=== PATIENT | male | born 1995 | race Caucasian/White ===

== ENCOUNTER 2017-10-31 21:36 | Emergency (ER) | payer OTHER, SELFPAY ==
[2017-10-31 21:37] VITALS: BP 147/93; PULSE 75; RESP 18; TEMP 37.4; O2SAT 100; BMI 22.5
[2017-10-31] MEDS: Cephalexin 250 MG Capsule 500 MG PO (23:01)
[2017-10-31] MEDS: HYDROcodone Bitartrate/Apap 5/325 Tablet PO (23:01)
--- NOTE | 2017-10-31 23:30 | ED.VISSUMM ---
- ER Visit Summary Date of Service: 10/31/17 Chief Complaint: Left long finger injury History of Present Illness: The patient is a 22 M who is right-hand dominant. Tonight he crushed his left long finger between 2 racks at work. He does have a laceration to the distal phalanx of the left third finger. He believes his last tetanus shot was approximately 7 years ago. Physical Examination: Vital signs unremarkable. Patient sitting upright in bed. He is in no acute distress. Left upper extremity examination reveals a small subungual hematoma to the left third finger. He has a 1 cm laceration of the distal phalanx on the palmar side. He has full range of motion. He has diffuse tenderness to palpation throughout the finger. He has good cap refill and sensation. Test Results: Left hand x-rays reveal a third distal tuft fracture. Emergency Department Course and Treatment: Patient is given Mckin[place], Keflex, and tetanus update. 1% lidocaine is used as a digital block. Wound is irrigated and skin is closed with 3 simple interrupted sutures of 5-0 nylon. Dressing will be applied and patient was placed in an AlumaFoam splint. He will follow-up with [facility]. Treatment Plan: [] Disposition: Discharge Impression: Open tuft fracture left third finger status post suture This note was generated with [employer] dictation software. It may contain incorrect words, spelling, and punctuation that were not noted in review of the chart prior to signing ED Disposition - Plan for ED Patient: Chief Complaint: Upper Extremity Injury Referrals: Rivera Valentin Jr., MD [Primary Care Provider] -
--- NOTE | 2017-10-31 23:32 | ED.DEP ---
ED Disposition - Plan for ED Patient: Disposition: Home or Assisted Living Chief Complaint: Upper Extremity Injury Instructions: ED Fx Finger Open Prescriptions: Cephalexin [Keflex] 500 mg PO Q6 #40 capsule Hydrocodone/Acetaminophen [[place] 5-325 Tablet] 1 - 2 each PO 4X/DAY PRN PRN 5 Days #20 tablet PRN Reason: Pain Referrals: [facility] [[facility] OF PHYSICIANS] - 2 Days Additional Instructions: Have sutures removed in one week.
== END 2017-10-31 23:47 | disposition home or self-care (01) ==
PROVIDERS: Emergency Provider Emergency Medicine; Family Provider Internal Medicine; PCP Internal Medicine
DX: S62.633B Displaced fracture of distal phalanx of left middle finger, initial encounter for open fracture (principal); S61.213A Laceration without foreign body of left middle finger without damage to nail, initial encounter; W23.0XXA Caught, crushed, jammed, or pinched between moving objects, initial encounter; Y93.9 Activity, unspecified; Y92.9 Unspecified place or not applicable
CPT/HCPCS: 12001; 73130; 99285

== ENCOUNTER 2020-06-19 19:21 | Emergency (ER) | payer MEDICAID, SELFPAY ==
[2020-06-19 19:21] VITALS: BP 149/70; PULSE 97; RESP 18; TEMP 36.2; O2SAT 98; BMI 23.4
--- NOTE | 2020-06-19 19:40 | RAD_ITS ---
STUDY: X-RAY - LEFT FOOT CLINICAL: Male, 25 years old. Injury/Pain TECHNIQUE: 3 view(s) of the foot. COMPARISON: 11/19/2015. FINDINGS: Compression plate and screws seen along the lateral surface of the anterior process of the calcaneus. No visible fracture lines are seen. No other changes or acute abnormalities. Normal visualized subtalar, talonavicular, calcaneocuboid, tarsal and tarsometatarsal articulations. Normal metatarsi. Normal metatarsophalangeal joint of the great toe. Normal tibial and fibular sesamoid bones. Normal interphalangeal joint of the great toe. Normal phalanges of the great toe. Normal second through fifth metatarsophalangeal joints. Normal interphalangeal joints and phalanges of the lesser toes. The soft tissue structures are unremarkable. There is no demonstrated fracture. RAD/Foot min 3 Views IMPRESSION: No acute abnormality, status post surgical repair of previous calcaneal fractures. Electronically Signed: Maverick Huertas MD at 20:20 EDT , Service support ,
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
== END 2020-06-19 20:41 | disposition home or self-care (01) ==
PROVIDERS: Emergency Provider Emergency Medicine
DX: M79.672 Pain in left foot (principal); F17.200 Nicotine dependence, unspecified, uncomplicated
CPT/HCPCS: 73630; 99282

== ENCOUNTER 2020-10-15 09:17 | Emergency (ER) | payer MEDICAID, SELFPAY ==
[2020-10-15 09:18] VITALS: BP 139/92; PULSE 64; RESP 15; TEMP 36.3; O2SAT 99; BMI 22.0
--- NOTE | 2020-10-15 09:54 | EKG12_ITS ---
Test Reason : CP Blood Pressure : / mmHG Vent. Rate : 055 BPM Atrial Rate : 055 BPM P-R Int : 162 ms QRS Dur : 132 ms QT Int : 424 ms P-R-T Axes : -84 012 024 degrees QTc Int : 405 ms Possible ectopic atrial bradycardia Non-specific intra-ventricular conduction block Abnormal ECG Confirmed by LLUVIA MILLER, LEXY ([id number]), health editor MORAIMA RAMIREZ ([id number]) on 10/19/2020 12:59:34 PM Referred By: SCARLET Confirmed By:LEXY TEIXEIRA MD
--- NOTE | 2020-10-15 10:02 | EDS_ITS ---
HPI History of Present Illness Chief Complaint: Chest Pain Informant: patient Narrative Narrative: Patient is a 25-year-old previously healthy male who presents to the emergency department for chest pain. He states that it started earlier today. Currently rates as a 6 out of 10. It is a sharp discomfort. It has been coming and going over the past 5 years. He has followed up with physicians for this before. He is not sure of the diagnosis he was given for it. He denies any associated shortness of breath. He denies any cough, nausea/vomiting. No back or abdominal pain. No known aggravating or relieving factors. He used to take Tylenol for this but has not been helping the previous episodes. He denies any leg swelling or calf pain. Only prolonged period of immobility was for a flight to [place]. This was within the past couple of months. Patient does smoke cigarettes. [facility] Medical History (Updated 10/15/20 @ 11:[address] Rodriguez Joshua DO) Asthma Neck/Back Pain Home Medications NK 06/19/20 [History Last Taken Unknown] Allergy/AdvReac Type Severity Reaction Status Date / Time codeine Allergy Unknown Verified 10/15/20 09:20 Penicillins Allergy Unknown Verified 10/15/20 09:20 Social History Smoking Status: Current every day smoker tobacco type: cigarettes alcohol intake: never ROS ROS ED Constitutional Constitutional ED: Denies chills or fever(s) Eyes Eyes: Denies change in vision ENT ENT ED: Denies epistaxis or rhinorrhea Cardiovascular Cardiovascular: Reports chest pain; Denies palpitations Respiratory/Chest Respiratory/Chest: Denies cough, dyspnea or dyspnea on exertion Gastrointestinal Gastrointestinal: Denies abdominal pain, diarrhea, nausea or vomiting Genitourinary Genitourinary ED: Reports urinary frequency; Denies dysuria or hematuria Musculoskeletal Musculoskeletal: Denies back pain or neck pain Integumentary Denies rash Neurologic Neurologic: Denies dizziness, headache(s) or weakness EXAM Physical Exam Const Vital Signs: 10/15/20 09:18 10/15/20 09:28 10/15/20 10:26 Temperature 97.4 F L Temperature Source Temporal Pulse Rate 64 64 Respiratory Rate 15 14 Respiratory Effort Normal Non-Labored Blood Pressure 139/92 H 125/78 H Blood Pressure Mean 107 93 Pulse Ox 99 98 Oxygen Delivery Method Room Air Room Air 10/15/20 11:30 Temperature Temperature Source Pulse Rate 67 Respiratory Rate 16 Respiratory Effort Blood Pressure 139/74 H Blood Pressure Mean Pulse Ox 99 Oxygen Delivery Method Positive well nourished and well developed General Appearance ED: well developed and NAD HEENT Reports normocephalic, head/scalp atraumatic and moist mucous membranes Eyes PERRL and EOMs intact bilaterally Neck supple General: Negative for tenderness Chest Wall inspection of chest normal Resp normal respiratory effort and clear to auscultation bilaterally Auscultation: Negative for rales, rhonchi or wheezes Cardio regular rate, regular rhythm and no murmurs GI normal to inspection, nondistended, normoactive bowel sounds and non-tender Palpation: soft; Negative for guarding or rebound tenderness present Back/Spine no CVA tenderness Extremity General Extremety ED: Negative for edema or tenderness General Extremity: Negative for edema Neuro Sensorium / Orientation: alert Motor Exam: strength 5/5 throughout Psych mental status grossly normal Skin no rashes or lesions noted Heart Score History: Slightly/Non-Suspicious ECG: Normal Age: </= 45 years Risk Factors: 1 or 2 Risk Factors Score: 1 MDM MDM MDM Narrative Medical decision making narrative: Patient presents to the emergency department for acute on chronic exacerbation of left chest pain. It is not exertional. Is nonpleuritic. He satting 99% on room air. He is not tachycardic. He is PERC negative and I have low concern for thromboembolism. EKG, chest x-ray and basic lab work being obtained. Is given a dose of Toradol for symptomatic treatment. Patient's lab work did not reveal any significant acute abnormality. He is not anemic. Troponin well within normal limits. Chest x-ray does not reveal any acute cardiopulmonary abnormality. On reexamination patient is feeling improved. This time I believe concern for ACS as he has had these symptoms many times before in the past. We will have him follow-up with his PCP. Return precautions are reviewed with him. He understands and is agreeable this plan. All questions are answered. Lab Data Labs: Laboratory Results - last 24 hr 10/15/20 10/15/20 10:17 10:17 WBC 6.4 RBC 5.20 Hgb 15.5 Hct 45.5 MCV 87.5 MCH 29.8 MCHC 34.1 RDW Std Deviation 39.0 RDW Coeff of Zoya 12.1 Plt Count 170 MPV 11.2 Immature Gran % (Auto) 0.500 Neut % (Auto) 56.2 Lymph % (Auto) 29.4 [place] % (Auto) 7.5 Eos % (Auto) 5.6 H Baso % (Auto) 0.8 Absolute Neuts (auto) 3.6 Absolute Lymphs (auto) 1.88 Nucleated RBC % 0 Sodium 143 Potassium 3.4 L Chloride 109 H Carbon Dioxide 30.0 Anion Gap 4 L BUN 11 Creatinine 0.86 Estim Creat Clear Calc 122.15 Est GFR (MDRD) Af Amer 138 Est GFR (MDRD) Non-Af 114 BUN/Creatinine Ratio 12.8 Glucose 92 Calcium 8.5 Troponin I High Sens 13 Radiography Diagnostic Testing: Radiology Impression Chest X-Ray 10/15/20 10:12 IMPRESSION: Normal x-ray examination of the chest. Electronically Signed: Duarte Swift MD at 10:42 EDT , Service support , EKG Initial EKG: Attestation: I personally reviewed and interpreted this EKG as follows: (Rate of 55 bpm and normal sinus rhythm. Normal intervals. Mildly prolonged QRS of 132. No significant ST elevations or depressions. No T wave abnormalities.) Discharge Plan Triage Chief Complaint: Chest Pain ED Provider: Rodriguez Joshua Dx/Rx/DC Orders Clinical Impression: Chest pain Instructions: ED Chest Pain, Noncardiac Prescriptions: No Action NK RF: 0 Primary Care Provider: Care Physician,No Primary Referrals: Care Physician,No Primary [Primary Care Provider] - 3-5 Days Disposition Disposition: Home, Self Care Discharge Date/Time: 10/15/20 11:31
--- NOTE | 2020-10-15 10:12 | RAD_ITS ---
STUDY: X-RAY CHEST REASON FOR EXAM: Male, 25 years old. Chest pain TECHNIQUE: Single AP portable view of the chest. COMPARISON: Comparison is made with prior study dated 06/01/2015. FINDINGS: EKG electrodes are seen. The lungs are clear and expanded. There is no demonstrated pleural abnormality. Normal size heart. Normal mediastinum and renan. Normal visualized pulmonary arteries. Normal visualized aortic arch and descending thoracic aorta. Normal visualized thoracic spine. Normal visualized ribs, clavicles, and shoulders. There is no demonstrated abnormality of the visualized soft tissue structures of the upper abdomen. RAD/Chest 1 View (Portable) IMPRESSION: Normal x-ray examination of the chest. Electronically Signed: Duarte Swift MD at 10:42 EDT , Service support ,
[2020-10-15] MEDS: Ketorolac 15 MG/ML Vial IV (10:22)
[2020-10-15 10:26] VITALS: BP 125/78; PULSE 64; RESP 14; O2SAT 98
[2020-10-15 10:34] LABS: Absolute Lymphocyte Count 1.88 X10^3/uL (0.83-4.51); Absolute Neutrophil Count 3.6 X10^3/uL (2.0-7.7); Basophil# 0.05 X10^3/uL; Basophil% 0.8 % (0-1); Eosinophil# 0.36 X10^3/uL; Eosinophils% 5.6 % (0-5); Hematocrit 45.5 % (40-54); Hemoglobin 15.5 g/dL (13.0-16.5); Lymphocyte # 1.88 X10^3/ul (0.83-4.51); Lymphocyte % 29.4 % (19-41); Mean Corp Hgb Conc 34.1 g/dL (32-36); Mean Corpuscular Hgb 29.8 pg (27.0-32.0); Mean Corpuscular Volume 87.5 fL (80-94); Mean Platelet Vol. 11.2 fl (6.2-12.0); Monocyte# 0.48 X10^3/uL; Monocyte% 7.5 % (0-10); NRBC Flagged by Analyzer 0 % (0-5); Neutrophil # 3.59 X10^3/uL (2.7-7.7); Neutrophil % 56.2 % (47-70); Platelet Count 170 K/mm3 (150-450); RBC Distribution Width CV 12.1 % (11.6-14.6); White Blood Count 6.4 K/mm3 (4.4-11.0)
[2020-10-15 10:49] LABS: Anion Gap 4 (5-15); BUN 11 mg/dL (7-18); BUN/Creat Ratio 12.8 RATIO (10-20); Calcium,Total 8.5 mg/dL (8.5-10.1); Chloride 109 mmol/L (98-107); Creatinine, Serum 0.86 mg/dL (0.70-1.30); EST Glomerular Filtration Rate 114 mL/min (>60); Est Glom Filt Rate - Afr Amer 138 mL/min (>60); Estimated Creatinine Clearance 122.15 ml/min; Glucose 92 mg/dL (74-106); Potassium 3.4 mmol/L (3.5-5.1); Sodium Level 143 mmol/L (136-145); Troponin-I HS 13 pg/mL (3.0-78.0)
[2020-10-15 11:30] VITALS: BP 139/74; PULSE 67; RESP 16; O2SAT 99
== END 2020-10-15 11:31 | disposition home or self-care (01) ==
PROVIDERS: Emergency Provider Emergency Medicine
DX: R07.9 Chest pain, unspecified (principal); F17.210 Nicotine dependence, cigarettes, uncomplicated
CPT/HCPCS: 71045; 80048; 84484; 85025; 93005; 96374; 99283; A4216

== ENCOUNTER 2021-10-17 21:39 | Emergency (ER) | payer MEDICAID, SELFPAY ==
[2021-10-17 21:40] VITALS: BP 136/90; PULSE 96; RESP 18; TEMP 36.4; O2SAT 100; BMI 24.3
--- NOTE | 2021-10-17 21:54 | EX.ED.DYSGE1 ---
HPI History of Present Illness Chief Complaint: General Illness Detail of Chief Complaint: Cough and body aches and recent exposure to COVID-19 Informant: patient Narrative Narrative: Patient presents to the emergency department with complaint of cough and body aches that started around 11 AM today. Patient states that his girlfriend was just diagnosed with COVID-19. Patient did not take a home test. Patient denies any chest pain or shortness of breath. He denies fever. He has not had the COVID-vaccine. PFSH PFS Medical History (Updated 10/17/21 @ 22:[address] Kemar Bueno DO) Asthma Neck/Back Pain Home Medications NK 06/19/20 [History Last Taken Unknown] Allergy/AdvReac Type Severity Reaction Status Date / Time codeine Allergy Unknown Verified 10/15/20 09:20 Penicillins Allergy Unknown Verified 10/15/20 09:20 Social History Smoking Status: Current every day smoker tobacco type: cigarettes alcohol intake: never ROS ROS ED Review of Systems ROS Unobtainable: other Constitutional Constitutional ED: Reports lethargy; Denies chills, fever(s), sweats or weight loss Eyes Eyes: Denies blurry vision, change in vision or diplopia ENT ENT ED: Denies rhinorrhea or sore throat Cardiovascular Cardiovascular: Reports racing heartbeat; Denies chest pain, orthopnea or palpitations Respiratory/Chest Respiratory/Chest: Reports cough; Denies dyspnea, dyspnea on exertion, orthopnea or sputum Gastrointestinal Gastrointestinal: Denies abdominal pain, diarrhea, nausea or vomiting Genitourinary Genitourinary ED: Denies dysuria, hematuria or urinary frequency Musculoskeletal Musculoskeletal: Reports myalgias; Denies arthralgias, back pain or neck pain Integumentary Denies abscess, Abrasions or rash Neurologic Neurologic: Reports headache(s); Denies weakness Psychiatric Psychiatric: Denies anxiety, depression or suicidal thoughts Endocrine Endocrinology: Denies polydipsia, polyphagia or polyuria Hematologic/Lymphatic Hematologic/Lymphatic: Denies easy bleeding, easy bruising or lymphadenopathy Allergic/Immunologic Allergic/Immunologic ED: Denies mouth swelling, tongue swelling or urticaria EXAM Physical Exam Const Vital Signs: 10/17/21 21:40 Temperature 97.6 F L Temperature Source Temporal Pulse Rate 96 Respiratory Rate 18 Blood Pressure 136/90 H Blood Pressure Mean 105 Pulse Ox 100 Oxygen Delivery Method Room Air Positive well nourished and well developed General Appearance ED: well developed and NAD HEENT Reports TM's clear and moist mucous membranes normocephalic and atraumatic; Negative for trauma or tenderness Tympanic Membrane ED: Yes TM's clear Eyes PERRL and EOMs intact bilaterally General Eye ED: Negative for pale conjunctiva or scleral icterus Neck no lymphadenopathy, supple and no JVD General: Negative for tenderness Chest Wall inspection of chest normal and palpation of chest normal Chest: Negative for tenderness Resp normal respiratory effort and clear to auscultation bilaterally Effort and Inspection: Negative for respiratory distress or pain with movement Auscultation: Negative for rhonchi, wheezes or diminished lung sounds Cardio regular rate, regular rhythm, S1 normal heart sound, S2 normal heart sound and no murmurs Peripheral Pulses: pulses 2+ throughout GI normal to inspection, nondistended, normoactive bowel sounds, soft to palpation, non-tender, non-distended and no masses Back/Spine no CVA tenderness and no thoracic nor lumbar tenderness Extremity normal to inspection General Extremety ED: Negative for edema General Extremity: Negative for edema Neuro oriented x3, CN's II-XII intact bilaterally, no sensory deficits noted and gait normal Sensorium / Orientation: awake, alert, oriented to person, oriented to place and oriented to time Motor Exam: strength 5/5 throughout and strength abnormal Psych mental status grossly normal Skin no rashes or lesions noted and no wounds MDM MDM MDM Narrative Medical decision making narrative: Patient had a negative rapid COVID test. I did let him know that given his close exposure and symptomatology it is possible he could still have COVID and the test may not be picking it up given that he is only had symptoms for approximately 12 hours. Patient will repeat a test within the next couple of days. Lab Data Attestation: I reviewed the patient's lab results. Discharge Plan Triage Chief Complaint: General Illness ED Provider: Kemar Bueno Dx/Rx/DC Orders Clinical Impression: Viral URI Instructions: ED URI, Viral, No Abx (Adult) Prescriptions: No Action NK Primary Care Provider: Care Physician,No Primary Referrals: Yves Guerra MD [Med Staff - Sql Database Programmer] - As Needed Care Physician,No Primary [Primary Care Provider] - Disposition Disposition: Home, Self Care
== END 2021-10-17 22:36 | disposition home or self-care (01) ==
PROVIDERS: Emergency Provider Emergency Medicine; Visit Provider Emergency Medicine
DX: J06.9 Acute upper respiratory infection, unspecified (principal); F17.210 Nicotine dependence, cigarettes, uncomplicated; Z20.822 Contact with and (suspected) exposure to COVID-19
CPT/HCPCS: 87811; 99282